=== PATIENT | male | born 1950 | race Caucasian/White ===

== ENCOUNTER 2020-10-11 09:39 | Day surgery (SDC) | payer BC ==
[2020-10-10 11:33] VITALS: BMI 25.7
[2020-10-11] MEDS ORDERED: Levofloxacin 500 mg/D5W 100 ml Premix Bag ONE (12:36)
[2020-10-11] MEDS ORDERED: Iothalamate Meglumine 60% 30 ML VIAL FS ONE (13:25)
[2020-10-11] MEDS ORDERED: Fentanyl 100 MCG/2 ML VIAL ONE (13:33)
[2020-10-11] MEDS ORDERED: Midazolam HCl 2 mg/2 ml Vial ONE (13:33)
[2020-10-11] MEDS ORDERED: PROPOFOL 200 MG/20 ML VIAL ONE (13:55)
[2020-10-11] MEDS ORDERED: Glycopyrrolate 0.2 MG/ML 5 ML SYRINGE ONE (13:55)
[2020-10-11] MEDS ORDERED: Lidocaine 1% PF 5 ML VIAL ONE (13:55)
[2020-10-11] MEDS ORDERED: Ondansetron PF 4 MG/2 ML Vial ONE (13:55)
[2020-10-11] MEDS ORDERED: ePHEDrine 50 MG/ML VIAL ONE (13:55)
[2020-10-11] MEDS ORDERED: Ketorolac Tromethamine 30 MG/ML VIAL ONE (14:48)
[2020-10-11] MEDS ORDERED: Phenazopyridine HCl 100 MG TAB ONE (14:52)
[2020-10-11] MEDS ORDERED: Oxybutynin 5 MG TAB ONE (14:52)
[2020-10-21 18:13] LABS: CA Oxalate Dihydrate 90 % (.); CA Oxalate Monohydrate 10 % (.); Color Brown (.); Stone Weight 4 mg (.)
== END 2020-10-11 15:42 | disposition home or self-care (01) ==
LOC: SDC 09:39
PROVIDERS: ATTEND Urology
PROC: 0T768DZ Dilation of Right Ureter with Intraluminal Device, Via Natural or Artificial Opening Endoscopic (ICD-10-PCS; principal; 2020-10-11)
PROC: 0TC38ZZ Extirpation of Matter from Right Kidney Pelvis, Via Natural or Artificial Opening Endoscopic (ICD-10-PCS; principal; 2020-10-11)
DX: N20.1 Calculus of ureter (principal); J45.909 Unspecified asthma, uncomplicated; G40.909 Epilepsy, unspecified, not intractable, without status epilepticus; E78.5 Hyperlipidemia, unspecified; K21.9 Gastro-esophageal reflux disease without esophagitis; Z87.891 Personal history of nicotine dependence; Z79.899 Other long term (current) drug therapy; Z87.19 Personal history of other diseases of the digestive system; Z98.890 Other specified postprocedural states
CPT/HCPCS: 74420; 82365; 88300; C2617; J1885; J1956; J2250; J2405; J2704; J3010; J3490

== ENCOUNTER 2021-06-25 09:23 | Outpatient (CLI) | payer BC ==
[2020-10-08 10:02] LABS: Hemoglobin 15.2 g/dL (13.5-17.5); Mean Corpuscular HGB CONC 32.6 g/dL (32.0-36.0); Mean Corpuscular Hemoglobin 29.2 pg (27.0-33.0); Mean Corpuscular Volume 89.6 fl (81.2-95.1); Mean Platelet Volume 10.1 fl (7.4-10.4); Platelet Count 207 10x3/uL (150-450); RBC Distribution Width 13.7 % (11.5-14.5); White Blood Cell (WBC) Count 6.2 10x3/uL (3.5-10.5)
[2020-10-08 10:17] LABS: Anion Gap 16 mmol/L (10-20); BUN (Urea Nitrogen) 15 mg/dL (8.4-25.7); Calc. Creatinine Clearance 0 mL/min (70-130); Carbon Dioxide 29 mmol/L (23-31); Chloride 105 mmol/L (98-107); Glucose 106 mg/dL (80-115); Potassium 4.8 mmol/L (3.5-5.1); Sodium 145 mmol/L (136-145)
[2020-10-09 01:14] LABS: SARS-CoV-2 PCR by NAA Not Detected (NotDetected)
[2021-06-26 01:00] LABS: SARS-CoV-2 PCR by NAA Not Detected (NotDetected)
== END 2021-06-25 09:24 ==
LOC: LABBT 09:23
PROVIDERS: ATTEND Surgery
DX: Z01.818 Encounter for other preprocedural examination (principal); K40.91 Unilateral inguinal hernia, without obstruction or gangrene, recurrent; Z20.822 Contact with and (suspected) exposure to COVID-19
CPT/HCPCS: 80048; 85027; 93005; 93010; U0003; U0005

== ENCOUNTER 2021-06-30 05:53 | Day surgery (SDC) | payer BC ==
[2021-06-26 11:17] VITALS: BMI 26.5
[2021-06-30] MEDS ORDERED: fentaNYL Citrate/PF 100 MCG/2 ML SYRINGE ONE (06:47)
[2021-06-30] MEDS ORDERED: Bupivacaine 0.25% 10 ML VIAL ONE (06:52)
[2021-06-30] MEDS ORDERED: Lidocaine 1% w/Epinephrine 1:100K 20 ML VIAL ONE (06:52)
[2021-06-30] MEDS ORDERED: Scopolamine 1.5 mg/72 hour Patch ONE (07:06)
[2021-06-30] MEDS ORDERED: Famotidine/PF 20 mg/2ml Vial ONE (07:07)
[2021-06-30] MEDS ORDERED: CEFAZOLIN 2 GM VIAL ONE (07:23)
[2021-06-30] MEDS ORDERED: Rocuronium Bromide 10 MG/ML (10ML VIAL) ONE (07:31)
[2021-06-30] MEDS ORDERED: Ondansetron PF 4 MG/2 ML Vial ONE (07:31)
[2021-06-30] MEDS ORDERED: PROPOFOL 200 MG/20 ML VIAL ONE (07:31)
[2021-06-30] MEDS ORDERED: Lidocaine 1% PF 5 ML VIAL ONE (07:31)
[2021-06-30] MEDS ORDERED: Glycopyrrolate 0.2 MG/ML 5 ML SYRINGE ONE (07:31)
[2021-06-30] MEDS ORDERED: ePHEDrine 50 MG/ML VIAL ONE (07:31)
[2021-06-30] MEDS ORDERED: Ketorolac Tromethamine 30 MG/ML VIAL ONE (07:31)
[2021-06-30] MEDS ORDERED: Dexamethasone 20 MG/5 ML VIAL ONE (07:31)
== END 2021-06-30 11:02 | disposition home or self-care (01) ==
LOC: SDC 05:53
PROVIDERS: ATTEND Surgery
PROC: 0WQF0ZZ Repair Abdominal Wall, Open Approach (ICD-10-PCS; principal; 2021-06-30)
PROC: 8E0W4CZ Robotic Assisted Procedure of Trunk Region, Percutaneous Endoscopic Approach (ICD-10-PCS; principal; 2021-06-30)
PROC: 0YU54JZ Supplement Right Inguinal Region with Synthetic Substitute, Percutaneous Endoscopic Approach (ICD-10-PCS; principal; 2021-06-30)
DX: K40.91 Unilateral inguinal hernia, without obstruction or gangrene, recurrent (principal); K42.9 Umbilical hernia without obstruction or gangrene; I10 Essential (primary) hypertension; K21.9 Gastro-esophageal reflux disease without esophagitis; J45.909 Unspecified asthma, uncomplicated; E78.2 Mixed hyperlipidemia; F10.11 Alcohol abuse, in remission; Z87.891 Personal history of nicotine dependence; Z79.899 Other long term (current) drug therapy
CPT/HCPCS: C1713; J1100; J1885; J2405; J2704; J3490; S0020; S0028